=== PATIENT | male | born 1985 | race Caucasian/White ===

== ENCOUNTER 2018-02-20 14:01 | Emergency (ER) | payer SELFPAY ==
[2018-02-20 14:02] VITALS: BP 132/93; PULSE 108; RESP 18; TEMP 36.9; O2SAT 97; BMI 29.0
--- NOTE | 2018-02-20 14:54 | ED.VISSUMM ---
- ER Visit Summary Date of Service: 02/20/18 Chief Complaint: Suicidal ideation History of Present Illness: The patient is a 32 M with long-standing depression and suicidal ideation. Patient states this is been worse since the . He was in a treatment facility for drug rehab and walked away on that day. He states his suicidal thoughts are worse. When asked about a specific plan patient states any way I can. Patient has been treated by his primary care physician for depression for quite some time. He was recently on Latuda which he and significant other felt were helping, but was recently taken off of this secondary to cost. Symptoms have significantly worsened since stopping this medication. Patient states that he has never been hospitalized for depression or suicidal ideation in the past. He does admit to cutting his wrist and taking pills in the past. Physical Examination: Vital signs unremarkable. Patient is lying in bed staring at the ceiling. He has poor eye contact. Heart is regular rate and rhythm. Lung sounds are clear. Abdomen is soft nontender. Psychiatric evaluation reveals flat affect with poor eye contact. He does admit to suicidal thoughts. Test Results: CBC was a white count 11.4 with normal differential. Chemistry studies normal. Tox screen is positive for amphetamines and cannabinoids. EtOH is normal. Emergency Department Course and Treatment: Patient was given 1 mg of p.o. Ativan. Patient was seen by To from the counseling center. He has an appointment in 2 days to be seen for intake. Family will be with patient. They are comfortable with this plan. Treatment Plan: [] Disposition: Discharge Impression: Depression This note was generated with [employer] dictation software. It may contain incorrect words, spelling, and punctuation that were not noted in review of the chart prior to signing ED Disposition - Plan for ED Patient: Disposition: Home or Assisted Living Chief Complaint: Suicidal Instructions: ED Depression Referrals: Counseling,Center [GROUP OF PHYSICIANS] - 2 Days Additional Instructions: Follow-up on Tuesday as discussed.
[2018-02-20] MEDS: LORazepam 1 MG Tablet PO (15:02)
[2018-02-20 15:11] LABS: Absolute Lymphocyte Count 2.95 X10^3/ul (0.83-4.51); Absolute Neutrophil Count 6.9 X10^3/uL (2.0-7.7); Basophil# 0.04 X10^3/uL; Basophil% 0.4 % (0-1); Eosinophil# 0.11 X10^3/uL; Hematocrit 47.1 % (40-54); Lymphocyte # 2.95 X10^3/ul (4.0); Lymphocyte % 25.9 % (19-41); Mean Corpuscular Hgb 30.5 pg (27.0-32.0); Mean Corpuscular Volume 89.7 fL (80-94); Mean Platelet Vol. 10.7 fl (6.2-12.0); Monocyte# 1.33 X10^3/uL; Monocyte% 11.7 % (0-10); Neutrophil # 6.94 X10^3/uL (2.7-7.7); Neutrophil % 60.9 % (47-70); POSITIVE COUNT NO; POSITIVE DIFFERENTIAL NO; POSITIVE MORPHOLOGY NO; Platelet Count 331 K/mm3 (150-450); RBC Distribution Width CV 13.7 % (11.6-14.6); RBC Distribution Width SD 44.7 fl (35.1-43.9); Red Blood Count 5.25 M/mm3 (4.6-6.2); White Blood Count 11.4 K/mm3 (4.4-11.0)
[2018-02-20 15:15] LABS: Anion Gap 10 (5-15); BUN 16 mg/dL (7-18); BUN/Creat Ratio 13.1 RATIO (10-20); Calcium,Total 9.7 mg/dL (8.5-10.1); Chloride 107 mmol/L (98-107); Creatinine, Serum 1.22 mg/dL (0.70-1.30); EST Glomerular Filtration Rate 72 mL/min (>60); Est Glom Filt Rate - Afr Amer 87 mL/min (>60); Estimated Creatinine Clearance 90.87 ml/min; Glucose 98 mg/dL (74-106); Potassium 3.6 mmol/L (3.5-5.1); Sodium Level 141 mmol/L (136-145)
[2018-02-20 16:49] VITALS: PULSE 76; RESP 16; O2SAT 100
--- NOTE | 2018-02-20 16:54 | ED.RN ---
PER ABRAHAM WITH CRISIS PUT THE PT ON ICE HAS TO GO TO [facility] AND THEN [facility] THEN HE WILL BE HERE
[2018-02-20 18:26] LABS: Amphetamine Urine VISTA POSITIVE (<1000 ng/mL); Barbiturate Urine VISTA NEGATIVE (< 200 ng/mL); Benzodiazepine Urine VISTA NEGATIVE (< 200 ng/mL); Cocaine Urine VISTA NEGATIVE (< 300 ng/mL); Ecstacy Urine VISTA NEGATIVE (< 500 ng/mL); Methadone Urine VISTA NEGATIVE (< 300 ng/mL); PCP Urine VISTA NEGATIVE (< 25 ng/mL); THC Urine VISTA POSITIVE (< 50 ng/mL); Vista UDS pH Range 6
[2018-02-20 19:31] VITALS: BP 125/79; PULSE 94; RESP 16; O2SAT 95
--- NOTE | 2018-02-20 21:30 | ED.RN ---
CRISIS ON SITE
--- NOTE | 2018-02-20 22:26 | ED.DEP ---
ED Disposition - Plan for ED Patient: Disposition: Home or Assisted Living Chief Complaint: Suicidal Instructions: ED Depression Referrals: Counseling,Center [GROUP OF PHYSICIANS] - 2 Days Additional Instructions: Follow-up on Tuesday as discussed.
== END 2018-02-20 22:48 | disposition home or self-care (01) ==
PROVIDERS: Emergency Provider Emergency Medicine; Family Provider Nurse Practitioner Family; PCP Nurse Practitioner Family
DX: F32.9 Major depressive disorder, single episode, unspecified (principal); R45.851 Suicidal ideations; F15.90 Other stimulant use, unspecified, uncomplicated; Z72.0 Tobacco use
CPT/HCPCS: 80048; 80307; 80320; 85025; 99284; A4216; G0480

== ENCOUNTER 2021-09-24 17:55 | Emergency (ER) | payer MEDICAID, SELFPAY ==
[2021-09-24 17:56] VITALS: BP 131/86; PULSE 101; RESP 16; TEMP 36.5; O2SAT 97; BMI 27.9
--- NOTE | 2021-09-24 21:03 | EX.ED.DYSGE1 ---
HPI History of Present Illness Chief Complaint: Lower Extremity Injury Detail of Chief Complaint: Left leg pain and swelling Informant: patient Onset/Context/Timing Onset: Days (3 days) Narrative Narrative: Patient reports waking from sleep 3 days ago with pain throughout his left calf. He denies any known injury. His father does have a history of blood clots. He was seen at [facility] last evening. He states the doctor did a bedside ultrasound that appeared to show clots over the popliteal region. He was supposed to go back today for formal ultrasound was not able to get a ride. He was reportedly written a prescription for blood thinners last evening. [facility] Medical History no medical history no medical history Home Medications NK 02/20/18 [History Last Taken Unknown] Allergy/AdvReac Type Severity Reaction Status Date / Time acetaminophen Allergy Nausea Verified 09/24/21 17:58 [From Darvocet-N] bupropion [From Wellbutrin] Allergy Other Verified 09/24/21 17:58 lithium Allergy Other Verified 09/24/21 17:58 propoxyphene Allergy Nausea Verified 09/24/21 17:58 [From Darvocet-N] Social History Smoking Status: Never smoker ROS ROS ED Constitutional Constitutional ED: Denies chills or fever(s) Eyes Eyes: Denies change in vision ENT ENT ED: Denies sore throat Cardiovascular Cardiovascular: Denies chest pain Respiratory/Chest Respiratory/Chest: Denies cough or dyspnea Gastrointestinal Gastrointestinal: Denies abdominal pain, nausea or vomiting Musculoskeletal Musculoskeletal: Reports arthralgias and myalgias; Denies back pain Integumentary Denies rash Neurologic Neurologic: Denies headache(s) or weakness Allergic/Immunologic Allergic/Immunologic ED: Denies urticaria EXAM Physical Exam Const Vital Signs: 09/24/21 17:56 09/24/21 22:03 Temperature 97.7 F L 98.5 F Temperature Source Temporal Pulse Rate 101 H 66 Respiratory Rate 16 14 Blood Pressure 131/86 H 126/78 H Blood Pressure Mean 101 Pulse Ox 97 98 Oxygen Delivery Method Room Air Positive well nourished and well developed General Appearance ED: well developed HEENT Reports moist mucous membranes Eyes PERRL and EOMs intact bilaterally Neck supple Chest Wall inspection of chest normal and palpation of chest normal Resp normal respiratory effort and clear to auscultation bilaterally Cardio regular rate and regular rhythm GI non-tender Palpation: soft Extremity Extremity Narrative: Left calf tenderness. No erythema or skin change. Strong distal pulses. Mild edema noted. Neuro oriented x3 Sensorium / Orientation: alert Psych mental status grossly normal Skin no rashes or lesions noted MDM MDM MDM Narrative Medical decision making narrative: Venous ultrasound of the left lower extremity obtained. Patient given Tylenol for pain. Radiography Diagnostic Testing: Clinical Impression(s) from Imaging Studies Venous Duplex 09/24/21 21:13 IMPRESSION: Occlusive deep venous thrombosis left popliteal vein and throughout the calf. at 2220 Reported and signed by: Eddie Christiansen MD Electronically Signed: Eddie Christiansen MD at 22:18 EDT , ADDENDUM: 09/24/212231 IMPRESSION: Occlusive deep venous thrombosis left popliteal vein and throughout the calf. at 2220 Reported and signed by: Eddie Christiansen MD N.B. : Charisse Bone MD, confirmed on 09/24/2021 22:25:51 (ET) that the healthcare facility has received the radiology report. Electronically Signed: Eddie Christiansen MD at 22:18 EDT , Treatment and Re-Evaluation Narrative: Venous ultrasound reveals DVT in the left popliteal vein and throughout the calf. Test results were discussed with the patient. He was already written for what sounds like Eliquis last evening. He has not yet picked it up from the pharmacy. He is given a dose tonight. He was referred to Dr. Owens, next on the no doc list for follow-up. Discharge Plan Triage Chief Complaint: Lower Extremity Injury ED Provider: Charisse Bone Dx/Rx/DC Orders Clinical Impression: DVT (deep venous thrombosis) Instructions: DVT Dc Prescriptions: No Action NK RF: 0 Primary Care Provider: Care Physician,No Primary Referrals: Martha Owens MD [STAFF PHYSICIAN] - As soon as possible Care Physician,No Primary [Primary Care Provider] - Disposition Disposition: Home, Self Care Discharge Date/Time: 09/24/21 22:06
[2021-09-24] MEDS: Acetaminophen 500 MG Tablet 1000 MG PO (21:08)
--- NOTE | 2021-09-24 21:13 | US_ITS ---
ACR Level 3 findings have been noted. An addendum which confirms receipt of the report will follow. HISTORY: LEFT LOWER LEG REDNESS AND SWELLING EXAMINATION: US Venous Duplex LE Unilat / Limited TECHNIQUE: Walls scale, pulse wave, and color flow Doppler imaging was performed of the left lower extremity venous system. COMPARISON: None FINDINGS: There is visible thrombus and noncompressibility in the left popliteal vein and throughout the imaged posterior tibial and peroneal veins without visible vascular flow. Left common femoral, superficial femoral veins are patent. right common femoral vein is patent. US/Venous Duplex Imag/Limited/Uni IMPRESSION: Occlusive deep venous thrombosis left popliteal vein and throughout the calf. at 2220 Reported and signed by: Eddie Christiansen MD Electronically Signed: Eddie Christiansen MD at 22:18 EDT ,
[2021-09-24 22:03] VITALS: BP 126/78; PULSE 66; RESP 14; TEMP 36.9; O2SAT 98
[2021-09-24] MEDS: APIXABAN 5 MG TABLET 10 MG PO (22:05)
== END 2021-09-24 22:06 | disposition home or self-care (01) ==
PROVIDERS: Emergency Provider Emergency Medicine; Visit Provider Emergency Medicine
DX: I82.432 Acute embolism and thrombosis of left popliteal vein (principal)
CPT/HCPCS: 93971; 99283

== ENCOUNTER 2022-09-01 17:44 | Emergency (ER) | payer MEDICAID, SELFPAY ==
[2022-09-01 17:45] VITALS: BP 129/79; PULSE 88; RESP 15; TEMP 36.3; O2SAT 99; BMI 26.7
--- NOTE | 2022-09-01 18:09 | ED.VIS.BACK ---
HPI History of Present Illness Chief Complaint: Back Informant: patient Onset/Context/Timing Onset: Today Context: Sudden Onset Timing: Continuous Quality: Sharp (Stabbing) Location: Lumbar Worsened by: improves with Movement and Bending Relieved by: Nothing Associated Symptoms Associated Symptoms: Negative for Numbness, Tingling, Radiation to Right Leg, Radiation to Left Leg, Fever, Abdominal Pain, Dysuria, Unable to Ambulate, Unable to Transfer, Urinary Retention, Urinary Incontinence, Constipation or Fecal Incontinence Narrative Narrative: Patient presents with low back pain that began today. Patient states it began rather suddenly a couple hours prior to arrival. Patient states he was chasing his dog when the pain began. Patient states he felt like his back slipped out. Patient states it is done this before. Patient states it feels like his lumbar spine is shifted to the right. Patient denies any radiation of the pain. Patient denies any bowel or bladder changes. Patient denies any saddle anesthesia. Patient denies any falls or direct trauma. PFSH PFSH Medical History no medical history no medical history Home Medications hydrocodone-acetaminophen 5-325mg 5mg-325mg 1 tab PO Q6H PRN PRN Pain 3 days #10 TABLETS 09/01/22 [Rx Last Taken Unknown] Allergy/AdvReac Type Severity Reaction Status Date / Time acetaminophen Allergy Nausea Verified 09/01/22 17:47 [From Darvocet-N] bupropion [From Wellbutrin] Allergy Other Verified 09/01/22 17:47 lithium Allergy Other Verified 09/01/22 17:47 propoxyphene Allergy Nausea Verified 09/01/22 17:47 [From Darvocet-N] Family History no significant family his Surgical History History of hip surgery Social History Smoking Status: Current every day smoker tobacco type: cigarettes ROS ROS ED Constitutional Constitutional ED: Denies chills or fever(s) Eyes Eyes: Denies blurry vision or change in vision ENT ENT ED: Reports rhinorrhea; Denies sore throat Cardiovascular Cardiovascular: Denies chest pain or palpitations Respiratory/Chest Respiratory/Chest: Denies cough or dyspnea Gastrointestinal Gastrointestinal: Denies nausea or vomiting Genitourinary Genitourinary ED: Denies dysuria or hematuria Musculoskeletal Musculoskeletal: Reports back pain; Denies neck pain Integumentary Denies abscess or rash Neurologic Neurologic: Denies headache(s) or weakness Allergic/Immunologic Allergic/Immunologic ED: Denies mouth swelling or urticaria EXAM Physical Exam Const Vital Signs: 09/01/22 17:45 Temperature 97.3 F L Temperature Source Temporal Pulse Rate 88 Respiratory Rate 15 Blood Pressure 129/79 H Blood Pressure Mean 95 Pulse Ox 99 Oxygen Delivery Method Room Air Positive well nourished and well developed General Appearance ED: well developed and NAD HEENT Reports moist mucous membranes Neck supple and no JVD Back/Spine Back/Spine Narrative: There is tenderness and spasm of the right lumbar paraspinal muscles. There is mild midline tenderness. There is no bony crepitance or step-off. Range of motion was limited in all motions of the lumbar spine secondary to pain. Strength is 5/5 bilaterally in the lower extremities. There are no sensory deficits noted. Deep tendon reflexes are 2/4 bilaterally in the lower extremities. Straight leg raises were negative bilaterally. Lumbar Spine / Lower Back: ROM limited and straight leg raise negative bilaterally Extremity normal to inspection and no clubbing, cyanosis or edema Neuro oriented x3 and no sensory deficits noted Sensorium / Orientation: alert Motor Exam: strength 5/5 throughout Deep Tendon Reflexes: Rt Patellar (L4): 2+, Lt Patellar (L4): 2+, Rt Ankle (S1): 2+ and Lt Ankle (S1): 2+ Deep Tendon Reflexes Back: Rt Patellar (L4): 2+, Lt Patellar (L4): 2+, Rt Ankle (S1): 2+ and Lt Ankle (S1): 2+ Psych mental status grossly normal MDM MDM MDM Narrative Medical decision making narrative: Differential diagnosis includes lumbosacral strain, spondylolisthesis, and fracture. X-rays of the lumbar spine will be obtained to assess for fracture and spondylolisthesis. Radiography X-Ray: LS SPine Diagnostic Testing: Clinical Impression(s) from Imaging Studies Lumbar Spine X-Ray 09/01/22 18:16 IMPRESSION: Degenerative change with chronic appearing L2 compression fracture. Electronically Signed: Gio Clolins MD at 18:37 EST , X-rays of the lumbar spine were obtained. There are 3 views. On my independent interpretation, there is no acute fracture or spondylolisthesis. There is a chronic compression fracture of L2 and some degenerative changes. Radiologist also interpreted the x-rays and agrees. Treatment and Re-Evaluation Narrative: Patient was given injection of Toradol here. Patient is still having pain. Patient was given injection of morphine. Patient was advised of his findings. Patient was instructed to use ice to the area. Patient was instructed to do gentle stretching exercises. Patient was given a prescription for a short course of [place]. Patient was instructed to follow-up with his primary care physician in 5 to 7 days. Patient understood and was agreeable with the plan. All questions were answered. Discharge Plan Triage Chief Complaint: Back ED Provider: Watson Garcia Dx/Rx/DC Orders Clinical Impression: Acute lumbosacral myofascial strain Instructions: ED Back Sprain/Strain Prescriptions: New hydrocodone-acetaminophen [hydrocodone-acetaminophen] 5-325 mg tablet 1 tab PO Q6H PRN PRN (Reason: Pain) 3 Days Qty: 10 0RF Primary Care Provider: Care Physician,No Primary Referrals: Martha Owens MD [Med Staff - [facility]] - 5-7 Days Care Physician,No Primary [Primary Care Provider] - Disposition Disposition: Home, Self Care
--- NOTE | 2022-09-01 18:16 | RAD_ITS ---
STUDY: X-RAY - LUMBAR SPINE REASON FOR EXAM: Male, 37 years old. Injury/Pain TECHNIQUE: 3 view(s) of the lumbar spine were obtained. COMPARISON: None FINDINGS: Normal lumbar lordosis. There is grade 1 retrolisthesis at L4-5. There is a dextroscoliosis of the lumbar spine. There is chronic appearing L2 compression fracture with 15% loss of height of the superior endplate. There is mild degenerative change with spurring. There is facet spurring of the lower lumbar spine. The soft tissue structures are unremarkable. RAD/Lumbar Spine 2 or 3 Views IMPRESSION: Degenerative change with chronic appearing L2 compression fracture. Electronically Signed: Gio Collins MD at 18:37 EST ,
== END 2022-09-01 20:11 | disposition home or self-care (01) ==
PROVIDERS: Emergency Provider Emergency Medicine; Visit Provider Emergency Medicine
DX: S39.012A Strain of muscle, fascia and tendon of lower back, initial encounter (principal); F17.210 Nicotine dependence, cigarettes, uncomplicated; X58.XXXA Exposure to other specified factors, initial encounter
CPT/HCPCS: 72100; 99281

== ENCOUNTER 2024-02-22 15:16 | Emergency (ER) | payer MEDICAID, SELFPAY ==
[2024-02-22 15:16] VITALS: BP 139/96; PULSE 92; RESP 16; TEMP 36.6; O2SAT 99; BMI 28.2
--- NOTE | 2024-02-22 16:28 | ED.RN ---
pt. stated they would leave and go to .
== END 2024-02-22 16:26 | disposition left against medical advice (07) ==
LOC: ED 16:30
DX: Z53.21 Procedure and treatment not carried out due to patient leaving prior to being seen by health care provider (principal)